=== PATIENT | male | born 1990 | race Caucasian/White ===

== ENCOUNTER 2018-05-20 19:09 | Emergency (ER) | payer OTHER ==
[~2018-05-20] VITALS: Ht 180.3 cm; Wt 83.0 kg
[~2018-05-20 19:09] MED LIST: ANXIETY MED; BUPR150T2; CODACE30 PO; Crutch1 EACH MISC; HYDACE5 PO; METPHE18ER; METPHE20; Norco 5-325 Ta1 EACH PO; RITALIN LA; RXOXYACE PO; SERT50 PO; TETR250; UNKNOWN MED; ZOLOFT
[2018-05-20] MEDS ORDERED: PENVK500 PO (21:24)
== END 2018-05-20 21:32 | disposition home or self-care (01) ==
LOC: ER 19:09
DX: J02.0 Streptococcal pharyngitis (principal); F17.210 Nicotine dependence, cigarettes, uncomplicated
CPT/HCPCS: 87430; 99282; J1100

== ENCOUNTER 2018-10-15 11:22 | Emergency (ER) | payer OTHER ==
[~2018-10-15] VITALS: Ht 180.3 cm; Wt 79.4 kg
[~2018-10-15 11:22] MED LIST changes: +PENVK500 PO
[2018-10-15] MEDS ORDERED: Veetids 500500 MG PO (11:41)
== END 2018-10-15 11:56 | disposition home or self-care (01) ==
LOC: ER 11:22
DX: J02.0 Streptococcal pharyngitis (principal); F17.210 Nicotine dependence, cigarettes, uncomplicated
CPT/HCPCS: 87430; 99282; J1100

== ENCOUNTER → 2019-02-06 | Outpatient (CLI) | payer OTHER ==
[~2019-02-06] MED LIST changes: +Veetids 500500 MG PO
[2019-02-08 09:06] LABS: HIV SCREEN 4TH GENERATION WRFX Non Reactive (Non Reactive)
[2019-02-10 15:07] LABS: CHLAMYDIA TRACHOMATIS, NAA Negative (Negative); NEISSERIA GONORRHOEAE, NAA Negative (Negative)
== END | disposition home or self-care (01) ==
LOC: LAB EV 16:17 → LAB SHORT 16:17
PROVIDERS: Physician Assistant Surgical
DX: Z72.51 High risk heterosexual behavior (principal)
CPT/HCPCS: 86592; 87389; 87491; 87591

== ENCOUNTER 2019-03-07 17:42 | Emergency (ER) | payer OTHER ==
[~2019-03-07] VITALS: Ht 180.3 cm; Wt 77.1 kg
[2019-03-07 19:18] LABS: Influenza A Negative (NEGATIVE); Influenza B Negative (NEGATIVE)
== END 2019-03-07 19:58 | disposition home or self-care (01) ==
LOC: ER 17:42
PROVIDERS: Physician Assistant
DX: J02.9 Acute pharyngitis, unspecified (principal); F17.210 Nicotine dependence, cigarettes, uncomplicated
CPT/HCPCS: 87081; 87430; 87804; 99283; J1100

== ENCOUNTER → 2020-01-19 | Outpatient (CLI) | payer OTHER ==
[2020-01-21 14:10] LABS: CORONAVIRUS (COVID19) CSH-NRL Negative (Negative)
== END | disposition home or self-care (01) ==
LOC: LAB SHORT 18:57
PROVIDERS: Family Medicine
DX: Z20.828 Contact with and (suspected) exposure to other viral communicable diseases (principal)
CPT/HCPCS: U0003